=== PATIENT | female | born 1965 | race Caucasian/White ===

== ENCOUNTER 2025-03-02 18:17 | Inpatient (IN) | payer BC ==
[~2025-03-02] VITALS: Ht 165.1 cm; Wt 90.9 kg
[2025-03-02 18:22] VITALS: O2SAT 98
[2025-03-02 18:58] LABS: BG BASE EXCESS -4.4 mmol/L (-2.0-3.0); BG CARBOXYHEMOGLOBIN 0.7 % (0.5-1.5); BG DEOXYHEMOGLOBIN 3.4 % (0.0-5.0); BG FRACTION INSPIRED OXYGEN 21; BG HCO3 ACT 19.1 mmol/L (21.0-28.0); BG METHEMOGLOBIN 0.3 % (0.5-1.5); BG OXYGEN SATURATION 96.6 % (94.0-98.0); BG OXYHEMOGLOBIN 95.6 % (94.0-98.0); BG PCO2 31.3 mmHg (32.0-45.0); BG PH 7.404 (7.350-7.450); BG PO2 84.7 mmHg (83.0-108.0); BG SAMPLE SITE LEFT RADIAL; BG TOTAL HEMOGLOBIN 14.5 g/dL (12.0-16.0); BG VENT MODE ROOM AIR
[2025-03-02] MEDS: SODIUM CHLORIDE 0.9% 1,000 ML IV ONE (19:04)
[2025-03-02] MEDS: ONDANSETRON HCL 4MG/2ML INJ IV STA (19:04)
[2025-03-02 19:39] LABS: CHLORIDE 99 mEq/L (98-107); POTASSIUM 4.4 mEq/L (3.5-5.1); SODIUM 132 mEq/L (136-145)
[2025-03-02 19:40] LABS: CALCIUM 9.7 mg/dL (8.7-10.4); CARBON DIOXIDE 18 mEq/L (21-32)
[2025-03-02 19:43] LABS: PROTHROMBIN TIME 10.4 sec (9.6-11.0)
[2025-03-02 19:45] LABS: CREATININE 1.7 mg/dL (0.6-1.0); TROPONIN I HIGH SENSITIVITY 16 ng/L (3.0-34); UREA NITROGEN BLOOD 18 mg/dL (9-23)
[2025-03-02 19:46] LABS: ETHANOL BLOOD < 10 mg/dL (<10)
[2025-03-02 19:47] LABS: ALANINE AMINOTRANSFERASE 65 IU/L (10-49); ALBUMIN 4.4 g/dL (3.2-4.8); ASPARTATE AMINOTRANSFERASE 77 IU/L (<34); BILIRUBIN DIRECT 0.2 mg/dL (<=3.0)
[2025-03-02 19:48] LABS: BILIRUBIN TOTAL 0.6 mg/dL (0.1-1.0); PROTEIN TOTAL 7.5 g/dL (6.0-8.3)
[2025-03-02 20:00] LABS: LACTIC ACID 2.8 mmol/L (0.4-2.0)
[2025-03-02 20:01] LABS: GLUCOSE 542 mg/dL (70-105)
[2025-03-02 20:29] LABS: BETA HYDROXYBUTYRATE 0.6 mMol/L (0.0-0.3)
[2025-03-02] MEDS: INSULIN REGULAR (HUMULIN R) 1000UNITS/10ML VIAL SUBCUT ONE (20:46)
[2025-03-02 21:05] LABS: BASOPHILS % 0.6 % (0.0-2.0); EOSINOPHILS % 1.8 % (0.0-5.0); HEMATOCRIT. 40.7 % (36.0-48.0); HEMOGLOBIN. 13.6 g/dL (12.0-16.0); LYMPHOCYTES % 8.8 % (20.0-50.0); MEAN CORPUSCULAR HEMOGLOBIN 28.4 pg (28.0-32.0); MEAN CORPUSCULAR HGB CONC 33.4 g/dL (31.0-37.0); MEAN CORPUSCULAR VOLUME 85.2 fL (81.0-99.0); MEAN PLATELET VOLUME 9.9 fl (7.4-10.4); MONOCYTES % 6.5 % (2.0-8.0); NEUTROPHILS % 82.3 % (40.0-76.0); PLATELET 183 x1000/uL (130-400); RED BLOOD CELL COUNT 4.78 mill/uL (4.2-5.4); RED CELL DISTRIBUTION WIDTH 14.7 % (11.6-14.6)
[2025-03-03] MEDS: AZITHROMYCIN 500MG/250ML 250 ML IV STA (00:08)
[2025-03-03] MEDS ORDERED: CLONIDINE 0.1MG TABLET PO PRN (00:15)
[2025-03-03] MEDS: CEFTRIAXONE 2GM/50ML 50 ML IV ONE (00:15)
[2025-03-03] MEDS ORDERED: GUAIFENESIN 200MG/10ML SUGAR FREE UDC PO PRN (00:15)
[2025-03-03] MEDS ORDERED: MAGNESIUM/ALUMINUM HYDROXIDE/SIMETHICONE 30ML UDC PO PRN (00:15)
[2025-03-03] MEDS ORDERED: ONDANSETRON HCL 4MG/2ML INJ IV PRN (00:15)
[2025-03-03] MEDS ORDERED: ACETAMINOPHEN 325MG TABLET PO PRN (00:15)
[2025-03-03] MEDS ORDERED: IPRATROPIUM/ALBUTEROL 0.5-3(2.5)MG/3ML NEB HHN PRN (00:15)
[2025-03-03] MEDS ORDERED: DOCUSATE SODIUM 100MG CAPSULE PO PRN (00:15)
[2025-03-03 00:20] VITALS: BP 152/64; PULSE 78; RESP 18; TEMP 36.5; O2SAT 98
[2025-03-03] MEDS ORDERED: DEXTROSE 50% WATER 50ML SYRINGE IV PRN (00:30)
[2025-03-03 00:58] VITALS: BP 152/64; PULSE 78; RESP 18; TEMP 36.8
[2025-03-03] MEDS ORDERED: CARV25TA47 PO (01:34)
[2025-03-03] MEDS ORDERED: [UNRECOGNIZED DRUG - CODE] (01:34)
[2025-03-03] MEDS ORDERED: BUME1TAB8 PO (01:34)
[2025-03-03] MEDS ORDERED: SPIR25TA6 PO (01:34)
[2025-03-03] MEDS ORDERED: ROSU40TA (01:34)
[2025-03-03] MEDS ORDERED: INSNOV SUBCUT (01:34)
[2025-03-03] MEDS ORDERED: CLOP75TA33 PO (01:34)
[2025-03-03 02:18] LABS: CARBON DIOXIDE 24 mEq/L (21-32); CHLORIDE 102 mEq/L (98-107); POTASSIUM 4.2 mEq/L (3.5-5.1); SODIUM 137 mEq/L (136-145)
[2025-03-03 02:19] LABS: CALCIUM 9.2 mg/dL (8.7-10.4)
[2025-03-03 02:23] LABS: CREATININE 1.4 mg/dL (0.6-1.0); GLUCOSE 366 mg/dL (70-105)
[2025-03-03 02:24] LABS: UREA NITROGEN BLOOD 18 mg/dL (9-23)
[2025-03-03 02:26] LABS: PHOSPHORUS 3.2 mg/dL (2.5-4.9)
[2025-03-03 04:00] VITALS: BP 114/56; PULSE 72; RESP 18; TEMP 36.4; O2SAT 99
[2025-03-03] MEDS: BLOOD SUGAR DIAGNOSTIC STRIP TEST SCH (07:10)
[2025-03-03 08:00] VITALS: BP 138/50; PULSE 73; RESP 18; TEMP 36.6; O2SAT 96
[2025-03-03] MEDS: ASPIRIN 81MG TABLET PO SCH (08:12)
[2025-03-03] MEDS: SPIRONOLACTONE 25MG TABLET PO SCH (08:12)
[2025-03-03] MEDS: CLOPIDOGREL 75MG TABLET PO SCH (08:13)
[2025-03-03] MEDS: CARVEDILOL 12.5MG TABLET PO SCH (08:13)
[2025-03-03] MEDS: INSULIN LISPRO 100 UNITS/ML SUBCUT SCH (08:15)
[2025-03-03] MEDS: ACETAMINOPHEN 325MG TABLET PO PRN (11:28)
[2025-03-03] MEDS: INSULIN GLARGINE 100 UNITS/ML SUBCUT SCH (11:28)
[2025-03-03] MEDS: SODIUM CHLORIDE 0.9% 1,000 ML IV SCH (11:29)
[2025-03-03 12:00] VITALS: BP 108/79; PULSE 70; RESP 18; TEMP 36.5; O2SAT 97
[2025-03-03] MEDS ORDERED: INSULIN GLARGINE 100 UNITS/ML SUBCUT SCH (22:00)
== END 2025-03-03 16:13 | disposition left against medical advice (07) | DRG 641 ==
LOC: ER 18:17 → EDBEDREQ 19:40 → 8WST 22:21 → EDBEDREQ 22:22 → ENRESERV 22:48
PROVIDERS: ADMIT Internal Medicine; ATTEND Internal Medicine
DX: E86.0 Dehydration (principal); N17.9 Acute kidney failure, unspecified; E11.65 Type 2 diabetes mellitus with hyperglycemia; I50.9 Heart failure, unspecified; I25.10 Atherosclerotic heart disease of native coronary artery without angina pectoris; Z53.29 Procedure and treatment not carried out because of patient's decision for other reasons; R74.8 Abnormal levels of other serum enzymes; N18.9 Chronic kidney disease, unspecified; I25.2 Old myocardial infarction; Z79.4 Long term (current) use of insulin; Z95.1 Presence of aortocoronary bypass graft; Z95.5 Presence of coronary angioplasty implant and graft
CPT/HCPCS: 36415; 36600; 70486; 71045; 80048; 80076; 80320; 82010; 82375; 82805; 82962; 83036; 83605; 83735; 83880; 83930; 84100; 84145; 84484; 85025; 93005; 97162; 97166; 99291; A4606; J0696; J1815; J2405; J7030; G0480